=== PATIENT | female | born 1995 | race Caucasian/White ===

== ENCOUNTER 2017-07-08 20:20 | Emergency (ER) | payer BC ==
[~2017-07-08] VITALS: Ht 165.1 cm; Wt 59.1 kg
[2017-07-08 20:28] VITALS: TEMP 37; Ht 165.1 cm; Wt 59.1 kg
[2017-07-08] MEDS ORDERED: SODIUM CHLORIDE 0.9% 1000ML 1,000 ML IV STA (20:55)
[2017-07-08] MEDS ORDERED: OPTIRAY 320 IV PRN (21:00)
[2017-07-08 21:02] LABS: HEMATOCRIT 44.9 % (37-47); MEAN CELL VOLUME 98.9 fL (80-100); MEAN CORPUSCULAR HEMOGLOBIN 32.6 pg (25-34); MEAN PLATELET VOLUME 11.2 fL (7.4-10.4); PLATELET COUNT 200 K/uL (130-400); RED BLOOD COUNT 4.54 M/uL (4.2-5.4); WHITE BLOOD COUNT 10.55 K/uL (4.8-10.8)
[2017-07-08] MEDS ORDERED: ONDANSETRON INJ 2 MG/ML 2 ML VIAL IV STA (21:11)
[2017-07-08 21:12] LABS: URINE APPEARANCE CLEAR (CLEAR); URINE BILIRUBIN NEG (NEG); URINE COLOR YELLOW; URINE NITRITE NEG (NEG); URINE SPECIFIC GRAVITY 1.017 (1.000-1.030); UROBILINOGEN NEG (NEG); ZZUR CULT IF INDIC CLEAN CATCH NO
[2017-07-08 21:14] LABS: MANUAL MICROSCOPIC REQUIRED? NO; REVIEW REQ? NO
[2017-07-08 21:22] LABS: BASO % 0.1 %; BASO ABS # 0.01 K/uL (0-0.2); COMPLETE YES; EOS % 0.2 %; IG% 0.3 %; LYMPH % 9.8 %; LYMPH ABS # 1.03 K/uL (1.2-3.4); MONO % 6.8 %; NEUT % 82.8 %
[2017-07-08] MEDS ORDERED: MULT-506 PO (21:38)
[2017-07-08] MEDS ORDERED: OMEG10007 PO (21:39)
[2017-07-08] MEDS ORDERED: BIOT1TAB5 PO (21:40)
[2017-07-08] MEDS ORDERED: GLUC1CAP33 PO (21:41)
[2017-07-08] MEDS ORDERED: ASCO100061 PO (21:43)
[2017-07-08] MEDS ORDERED: PYRI100T4 PO (21:44)
[2017-07-08] MEDS ORDERED: CYAN100020 PO (21:45)
[2017-07-08] MEDS ORDERED: [UNRECOGNIZED DRUG - OTHER] PO (21:47)
[2017-07-08 21:48] LABS: ISTAT CREATININE 0.8 mg/dl (0.6-1.3); ISTAT HEMOGLOBIN 13.6 g/dl (12.0-16.0); ISTAT IONIZED CALCIUM 1.07 mmol/l (1.12-1.32)
--- NOTE | 2017-07-08 21:57 | DIAGNOSTIC IMAGING REPORT ---
ABD/PELVIS IV CONTRAST ONLY HISTORY: 21 years-old Female RLQ abd pain acute right lower quadrant abdominal pain and nausea. Initial exam. COMPARISON: None available TECHNIQUE: Multiple axial CT images of the abdomen and pelvis were obtained following the intravenous administration of 116 mL Optiray 320. A dose lowering technique was used consistent with the principals of FRANK. FINDINGS: Mild dependent bibasilar atelectasis. No pneumoperitoneum identified. Imaged inferior cardiac chambers are unremarkable. Nonspecific 3 mm low attenuating lesion of the posterior right hepatic lobe on image 25 of series 2 is noted, statistically benign. The spleen, gallbladder, pancreas and adrenal glands are within normal limits. The right kidney and right ureter are unremarkable. There is mild to moderate dilation of the left renal pelvis and central calyces with normal uniform enhancement of the left kidney. No perinephric inflammatory stranding. No left ureteral dilation identified. Uterus and adnexa are unremarkable. Mild amount of free pelvic fluid within the pelvis is noted. Abdominal aorta is normal in both course and caliber. No bulky retroperitoneal adenopathy. Evaluation of the bowel is limited without the use of oral contrast and relative lack of mesenteric fat. There is no evidence of bowel obstruction. There are however several loops of small bowel which contain fecal material and air-fluid levels. Loops of small bowel within the left mid abdomen measure up to 2.9 cm transversely. Moderate stool volume of the ascending colon. The appendix is not definitively seen. No definite secondary signs of acute appendicitis. Bones appear intact. IMPRESSION: 1. Appendix not diagnostically visualized. No secondary evidence of acute appendicitis. The study however is limited secondary to lack of oral contrast and relative lack of mesenteric fat. 2. Multiple fecalized loops of small bowel throughout the abdomen and pelvis, some of which are mildly prominent in size with air-fluid levels are nonspecific findings without evidence of high-grade bowel obstruction or pneumoperitoneum. Delayed transit from medication use or ileus are differential considerations. 3. Mild amount of free pelvic fluid, may be physiologic. 4. Mild to moderate dilation of the left renal pelvis and central calyces without associated inflammatory stranding, hydroureter or obstructing stone identified. Attention at follow-up recommended. The above report was generated using voice recognition software. It may contain grammatical, syntax or spelling errors. Electronically signed by: Suleman Gilmore M.D. 07/08/2017 9:56 PM Dictated Date/Time: 07/08/2017 9:43 PM
[2017-07-08 22:03] LABS: BUN/CREATININE RATIO 41.7 (10-20); CALCIUM 9.8 mg/dl (8.5-10.1); CREATININE 0.85 mg/dl (0.60-1.20); POTASSIUM 3.5 mmol/L (3.5-5.1)
[2017-07-08] MEDS ORDERED: KETOROLAC TROMETHAMINE 30 MG/ML VIAL IV STA (22:13)
[2017-07-08] MEDS ORDERED: MAGNESIUM CITRATE 296 ML/BTL PO STA (22:55)
--- NOTE | 2017-07-08 22:59 | EMERGENCY ROOM VISIT NOTE ---
History Report prepared by Stacia: Luc Ragsdale Under the Supervision of: Dr. Jaswinder Campoverde M.D. First contact with patient: 20:55 Chief Complaint: ABDOMINAL PAIN Stated Complaint: SEVERE PAIN IN LOWER R ABDOMEN History of Present Illness The patient is a 21 year old female who presents to the Emergency Room with complaints of worsening abdominal pain that started this morning. She rates her pain as a 7/10 in severity. She reports that the pain is worsened with movement. The patient reports that she ate breakfast this morning and had a loose bowel movement. She reports that she felt fine for 20 minutes and then her abdominal pain returned. The patient reports that she then began to experience a constipation feeling. She states that she had food twice again and her feeling of constipation came back. The patient states that her abdominal pain came back and she described the sensation as sharp. She reports that the pain was located in the middle of abdomen which then radiated to her right side. The patient admits that she has had abdominal pains in the past, but denies experiencing abdominal pain this severe. She reports that whenever she urinates, she urinates an increased amount due to abdominal pressure. The patient states that her last meal was at 1700 and she had rice cakes and yogurt. 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 The patient admits that her sister has a history of GERD and her mother has a history of digestive issues.. She states that her PCP is Dr. Brielle Márquez. The patient denies LOC, headache, fevers, chills, diaphoresis, visual changes, neck pain, chest pain, breathing difficulties, nausea, vomiting, back pain, melena, hematochezia, urinary symptoms, numbness, weakness, lymphadenopathy, rash, or other complaints. Source of History: patient Onset: this morning Position: abdomen (RLQ) Symptom Intensity: 7/10 Quality: sharp Timing: worsening Modifying Factors (Worsening): movement Review of Systems See HPI for pertinent positives and negatives. A total of ten systems were reviewed and were otherwise negative. Past Medical & Surgical Medical Problems: (1) Migraine Family History GERD Social History Smoking Status: Never Smoker Housing Status: lives with roommate Occupation Status: [employer] student Current/Historical Medications Scheduled Ascorbic Acid (Ascorbic Acid), 1,000 MG PO Q2D Biotin (Biotin), 1,000 MCG PO DAILY Cyanocobalamin (Vitamin B12), Unknown Dose PO DAILY Fish Oil ([place]-3), 1 CAP PO DAILY Glucosamine-Chondroitin (Glucosamine & Chondroitin 500-400 mg), 1 CAP PO DAILY Multivitamin (Multivitamin), 1 TAB PO DAILY Pyridoxine (Vitamin B6), 100 MG PO DAILY [[place] Supplement], 2 CAP PO DAILY Allergies Coded Allergies: No Known Allergies (Unverified , 07/08/17) Physical Exam Vital Signs Date Time Temp Pulse Resp B/P (MAP) Pulse Ox O2 Delivery O2 Flow Rate FiO2 07/08/17 23:08 90 20 121/61 97 07/08/17 22:21 98 20 104/53 98 Room Air 07/08/17 20:28 37.0 110 20 119/81 97 Room Air Physical Exam GENERAL: Awake, alert, well-appearing, in no distress, uncomfortable. HENT: Normocephalic, atraumatic. Oropharynx unremarkable. EYES: Normal conjunctiva. Sclera non-icteric. NECK: Supple. No nuchal rigidity. FROM. No JVD. RESPIRATORY: Clear to auscultation. CARDIAC: Regular rate, normal rhythm. Extremities warm and well perfused. Pulses equal. ABDOMEN: Soft, non-distended. Right lower quadrant tenderness. Rebound, guarding , and tenderness to palpation present. Positive Rovsing's sign. No masses. RECTAL: Deferred. MUSCULOSKELETAL: Chest examination reveals no tenderness. The back is symmetrical on inspection without obvious abnormality. There is no CVA tenderness to palpation. No joint edema. LOWER EXTREMITIES: Calves are equal size bilaterally and non-tender. No edema. No discoloration. NEURO: Normal sensorium. No sensory or motor deficits noted. SKIN: No rash or jaundice noted. Medical Decision & Procedures ER Provider Diagnostic Interpretation: Radiology results as stated below per my review and radiologist interpretation ABD/PELVIS IV CONTRAST ONLY HISTORY: 21 years-old Female RLQ abd pain acute right lower quadrant abdominal pain and nausea. Initial exam. COMPARISON: None available TECHNIQUE: Multiple axial CT images of the abdomen and pelvis were obtained following the intravenous administration of 116 mL Optiray 320. A dose lowering technique was used consistent with the principals of FRANK. FINDINGS: Mild dependent bibasilar atelectasis. No pneumoperitoneum identified. Imaged inferior cardiac chambers are unremarkable. Nonspecific 3 mm low attenuating lesion of the posterior right hepatic lobe on image 25 of series 2 is noted, statistically benign. The spleen, gallbladder, pancreas and adrenal glands are within normal limits. The right kidney and right ureter are unremarkable. There is mild to moderate dilation of the left renal pelvis and central calyces with normal uniform enhancement of the left kidney. No perinephric inflammatory stranding. No left ureteral dilation identified. Uterus and adnexa are unremarkable. Mild amount of free pelvic fluid within the pelvis is noted. Abdominal aorta is normal in both course and caliber. No bulky retroperitoneal adenopathy. Evaluation of the bowel is limited without the use of oral contrast and relative lack of mesenteric fat. There is no evidence of bowel obstruction. There are however several loops of small bowel which contain fecal material and air-fluid levels. Loops of small bowel within the left mid abdomen measure up to 2.9 cm transversely. Moderate stool volume of the ascending colon. The appendix is not definitively seen. No definite secondary signs of acute appendicitis. Bones appear intact. IMPRESSION: 1. Appendix not diagnostically visualized. No secondary evidence of acute appendicitis. The study however is limited secondary to lack of oral contrast and relative lack of mesenteric fat. 2. Multiple fecalized loops of small bowel throughout the abdomen and pelvis, some of which are mildly prominent in size with air-fluid levels are nonspecific findings without evidence of high-grade bowel obstruction or pneumoperitoneum. Delayed transit from medication use or ileus are differential considerations. 3. Mild amount of free pelvic fluid, may be physiologic. 4. Mild to moderate dilation of the left renal pelvis and central calyces without associated inflammatory stranding, hydroureter or obstructing stone identified. Attention at follow-up recommended. The above report was generated using voice recognition software. It may contain grammatical, syntax or spelling errors. Electronically signed by: Suleman Gilmore M.D. 07/08/2017 9:56 PM Dictated Date/Time: 07/08/2017 9:43 PM Laboratory Results 07/08/17 20:50 Red Blood Count 4.54, Mean Corpuscular Volume 98.9, Mean Corpuscular Hemoglobin 32.6, Mean Corpuscular Hemoglobin Concent 33.0, Mean Platelet Volume 11.2, Neutrophils (%) (Auto) 82.8, Lymphocytes (%) (Auto) 9.8, Monocytes (%) (Auto) 6.8, Eosinophils (%) (Auto) 0.2, Basophils (%) (Auto) 0.1, Neutrophils # (Auto) 8.74, Lymphocytes # (Auto) 1.03, Monocytes # (Auto) 0.72, Eosinophils # (Auto) 0.02, Basophils # (Auto) 0.01 07/08/17 20:50 Test 07/08/17 20:50 07/08/17 21:00 07/08/17 21:05 White Blood Count 10.55 K/uL (4.8-10.8) Red Blood Count 4.54 M/uL (4.2-5.4) Hemoglobin 14.8 g/dL (12.0-16.0) Hematocrit 44.9 % (37-47) Mean Corpuscular Volume 98.9 fL (80-100) Mean Corpuscular Hemoglobin 32.6 pg (25-34) Mean Corpuscular Hemoglobin Concent 33.0 g/dl (32-36) Platelet Count 200 K/uL (130-400) Mean Platelet Volume 11.2 fL (7.4-10.4) Neutrophils (%) (Auto) 82.8 % Lymphocytes (%) (Auto) 9.8 % Monocytes (%) (Auto) 6.8 % Eosinophils (%) (Auto) 0.2 % Basophils (%) (Auto) 0.1 % Neutrophils # (Auto) 8.74 K/uL (1.4-6.5) Lymphocytes # (Auto) 1.03 K/uL (1.2-3.4) Monocytes # (Auto) 0.72 K/uL (0.11-0.59) Eosinophils # (Auto) 0.02 K/uL (0-0.5) Basophils # (Auto) 0.01 K/uL (0-0.2) RDW Standard Deviation 49.4 fL (36.4-46.3) RDW Coefficient of Variation 13.6 % (11.5-14.5) Immature Granulocyte % (Auto) 0.3 % Immature Granulocyte # (Auto) 0.03 K/uL (0.00-0.02) Est Creatinine Clear Calc Drug Dose 93.4 ml/min Estimated GFR () 112.7 Estimated GFR (Non- 97.3 BUN/Creatinine Ratio 41.7 (10-20) Calcium Level 9.8 mg/dl (8.5-10.1) Total Bilirubin 0.8 mg/dl (0.2-1) Direct Bilirubin 0.1 mg/dl (0-0.2) Aspartate Amino Transf (AST/SGOT) 45 U/L (15-37) Alanine Aminotransferase (ALT/SGPT) 82 U/L (12-78) Alkaline Phosphatase 75 U/L (45-117) Total Protein 9.0 gm/dl (6.4-8.2) Albumin 4.9 gm/dl (3.4-5.0) Lipase 180 U/L (73-393) Urine Color YELLOW Urine Appearance CLEAR (CLEAR) Urine pH 5.0 (4.5-7.5) Urine Specific [place] 1.017 (1.000-1.030) Urine Protein NEG (NEG) Urine Glucose (UA) NEG (NEG) Urine Ketones NEG (NEG) Urine Occult Blood NEG (NEG) Urine Nitrite NEG (NEG) Urine Bilirubin NEG (NEG) Urine Urobilinogen NEG (NEG) Urine Leukocyte Esterase NEG (NEG) Urine Test NEG (NEG) Bedside Hemoglobin 13.6 g/dl (12.0-16.0) Bedside Hematocrit 40 % (37-47) Bedside Sodium 135 mEq/L (135-144) Bedside Potassium 7.3 mEq/L (3.3-5.0) Bedside Chloride 100 mEq/L (101-112) Bedside Total CO2 30 mEq/l (24-31) Anion Gap 13.0 mmol/L (16-25) Bedside Blood Urea Nitrogen 54 mg/dl (7-18) Bedside Creatinine 0.8 mg/dl (0.6-1.3) Bedside Glucose (other) 99 mg/dl (70-99) Bedside Ionized Calcium (Rhonda) 1.07 mmol/l (1.12-1.32) Laboratory results reviewed by me Medications Administered Medications (Trade) Dose Ordered Sig/Bobby Route Start Time Stop Time Status Last Admin Dose Admin Sodium Chloride 1,000 ml @ 999 mls/hr Q1H1M STAT IV 07/08/17 20:55 07/08/17 21:55 DC 07/08/17 20:55 999 MLS/HR Ketorolac Tromethamine (Toradol Inj) 10 mg NOW STAT IV 07/08/17 22:13 07/08/17 22:14 DC 07/08/17 22:21 10 MG ED Course 2054: Ordered Sodium Chloride 1000 ml @ 999 mls/hr IV. 2101: The patient was evaluated in room B07. A complete history and physical exam was performed. 2110: Ordered Zofran Injection 4 mg IV. 2209: I reevaluated the patient and updated her on her results. 2212: Ordered Toradol Injection 10 mg IV. 2249: I reevaluated the patient. Discussed results and discharge instructions: She verbalized understanding and agreement. The patient is ready for discharge. Medical Decision Triage Nursing notes reviewed. The patient's presentation and history were concerning for abdominal pain. Etiologies such as appendicitis, diverticulitis, obstruction, inflammatory bowel disease, renal colic, PUD, biliary pathology, pancreatitis, mesenteric ischemia, aortic pathology, infections, genitourinary, UTI, perforated viscus, , ovarian pathology, as well as others were entertained. The patient was evaluated. Clinically she had right lower quadrant abdominal pain. Her findings were initially concerning for possible appendicitis. She had no right upper quadrant tenderness. She had no left-sided abdominal tenderness. She had blood work obtained. An i-STAT was performed in order to get a rapid creatinine. This was drawn through an IV and the nurse was concerning for possible hemolysis and potassium was noted to be elevated. A confirmation was sent to the lab and the potassium was normal. The patient did not have a leukocytosis on CBC. Urinalysis and test were unremarkable. The patient was mildly dehydrated. She was given 1 L of normal saline. Zofran was administered. Lipase was unremarkable. The patient's LFTs were minimally elevated. CT imaging was performed and did not reveal any evidence of acute appendicitis however her appendix was not clearly visualized. There were no right lower quadrant inflammatory changes. She did have what seemed to be an ileus but no evidence of obstruction. This may be a result of a viral process. On further review the patient was given a dose of Toradol. She was reassessed. Her abdominal examination was slightly improved. She did not have any rebound tenderness. On further discussion the patient has had on- and-off pain like this almost on a weekly or biweekly basis. She notes very ability in her bowel movements and frequent constipation. She denies taking any medications that would slow her bowel down. She uses only nutritional supplements and exercises regularly. The patient has a significant family history concerning for colitis, gastroparesis, esophagitis, and irritable bowel syndrome. This seems to be most consistent with that given the appearance on the CT coupled with the frequency of other events. She notes that this was the worst. I discussed conservative management with her. She will be given a dose of magnesium citrate to go. A small amount of Bentyl was provided. The patient will be coming back to the emergency department in 8-12 hours for reevaluation if her pain does not improve or if she worsens in any way. At the time I would entertain CT imaging with contrast prep. I gave my usual and customary discussion regarding this issue. I did discuss GI follow-up and the patient's mother notes that she has connections with multiple gastroenterologists in her hometown. By the evaluation outlined above other emergent etiologies such as those listed in the differential, as well as others, were deemed relatively unlikely. The patient was educated about the findings as listed above. All questions were answered and the patient was pleased with the treatment. Return instructions were outlined and the patient was discharged in stable condition. The patient was referred to PCP and gastroenterology for follow-up for a recheck of the current condition. Medication Reconcilliation Current Medication List: was personally reviewed by me Blood Pressure Screening Patient's blood pressure: Normal blood pressure Impression Primary Impression: Right lower quadrant abdominal pain Scribe Attestation The scribe's documentation has been prepared under my direction and personally reviewed by me in its entirety. I confirm that the note above accurately reflects all work, treatment, procedures, and medical decision making performed by me. Departure Information Dispostion Home / Self-Care Referrals No Doctor, Assigned (PCP) Patient Instructions My [facility] Additional Instructions ABDOMINAL PAIN INSTRUCTIONS: Magnesium citrate: Drink half the bottle for the pain and constipation issues. If you do not have a good bowel movement within 8 hours drink the second half of the bottle. Ibuprofen(Motrin, Advil) may be used for fever or pain. Use 600mg every six hours as needed. Take with food. Avoid using more than 2400mg in a 24 hour period. Do not use 2400mg per day for more than three consecutive days without physician direction. Prolonged inappropriate use can lead to stomach upset or ulcers. (AND/OR) Acetaminophen(Tylenol) may be used for fever or pain. Use 1000mg every six hours as needed. Avoid using more than 4000mg in a 24 hour period. Zofran 4 mg oral dissolving tablets: take one tablet and allow it to melt in your mouth every 4 hours as needed for nausea. Bentyl(dicyclomine) 10 mg: Take one tablet 4 times daily as needed for abdominal pain. Discontinue this medication if you develop any rash, itching, increased abdominal pain, heartburn, increased nausea, constipation, or as needed. Rest and drink plenty of fluids as tolerated. Slow sips of water or sports drinks are recommended instead of large amounts all at once. Continue current medications. Once your stomach is settled start with a clear liquid diet (jello, soup broth, etc.) and then advance as tolerated. You should avoid full, heavy meals for about 24 hrs from the time your symptoms resolved. Return to the emergency department in 8-12 hours for reevaluation or sooner if the pain worsens, migrates to the right lower part of your abdomen, vomiting occurs, or you feel it necessary. Return to the ER immediately for worsening or persistent abdominal pain, vomiting, fevers, chest pains, difficulty breathing, black or bloody stools, worsening of your condition, or as needed. Follow up with your primary physician or S in 2-3 days for a recheck of your current condition. Follow up with GI as discussed.
[2017-07-08] MEDS ORDERED: ONDANSETRON HOME PACK 4MG OD TAB PO ONE (23:00)
[2017-07-08] MEDS ORDERED: BENTYL HOME PACK 10 MG VIAL PO ONE (23:00)
[2017-07-08 23:08] VITALS: BP 121/61; PULSE 90; O2SAT 97
== END 2017-07-08 23:09 | disposition home or self-care (01) ==
LOC: C.EDB 20:23
DX: R10.31 Right lower quadrant pain (principal)